=== PATIENT | female | born 1995 | race Caucasian/White ===

== ENCOUNTER 2017-02-14 22:37 | Inpatient (IN) | payer SELFPAY ==
[~2017-02-14] VITALS: Ht 162.6 cm; Wt 55.6 kg
[2017-02-14 22:38] VITALS: BP 127/80; PULSE 113; RESP 20; TEMP 97.8; O2SAT 100
--- NOTE | 2017-02-14 22:44 | PD ---
Physical Exam Date Seen by Provider: Feb 14, 2017 Time Seen by Provider: 22:42 Data Data Last Documented VS Vital Signs Date Time Temp Pulse Resp B/P Pulse Ox O2 Delivery O2 Flow Rate FiO2 02/14/17 22:38 97.8 113 20 127/80 100 Room Air MDM Supervised Visit with [place]: No Narrative Course 21 YO F with PMH T1DM with complaint of BG ~500+. Patient states that she hasn' t had insulin for one week 2/2 financial issues. Complains that she slept all day and still feels tired. LMP 02/09 Vitals reviewed. Patient seen in triage. Awaiting bed placement. Hanh Matute Feb 14, 2017 22:44
[2017-02-14] MEDS ORDERED: SODIUM CHLOR 0.9% 1000 ML INJ 1,000 ML IV ONE ×2 (22:54→23:24)
[2017-02-14 22:55] LABS: MEAN CORPUSCULAR HGB CONC 29.8 % (32.0-36.0)
[2017-02-14] MEDS ORDERED: LANTUS2P SQ (22:59)
[2017-02-14] MEDS ORDERED: SODIUM CHLORIDE 0.9% FLUSH 10 ML FLUSH IVF PRN (23:00)
--- NOTE | 2017-02-14 23:37 | PD ---
HPI Chief Complaint: Diabetic Time Seen by Provider: 22:54 Travel History International Travel<30 days: No Contact w/Intl Traveler<30days: No Traveled to known affect area: No History of Present Illness HPI 21-year-old type I diabetic here with complaint of hyperglycemia. Patient states that she ran out of her insulin approximate 1 week ago and has not been able to refill it due to financial constraints. Her blood glucoses have been in the 2 to 500s at home. She feels dehydrated. She has polyuria, polydipsia. Denies any nausea, vomiting, fevers or chills. PFSH Past Medical History Diabetes: Yes Patient Takes Glucophage: No Diminished Hearing: No Tetanus Vaccination: > 5 Years Influenza Vaccination: No ?: Not LMP: 02/12/17 Past Surgical History Surgical History: No Previous Surgery Social History Alcohol Use: No Tobacco Use: No Substance Use: Yes (CANNABIS) Allergies-Medications (Allergen,Severity, Reaction): Coded Allergies: No Known Allergies (Unverified , 02/14/17) Reported Meds & Prescriptions Reported Meds & Active Scripts Active Reported Lantus Inj (Insulin Glargine) 1,000 Unit/10 Ml Vial 5 Units SQ HS Review of Systems Except as stated in HPI: all other systems reviewed are Neg Physical Exam Narrative GENERAL: Well-appearing female in no acute distress SKIN: Focused skin assessment warm/dry. HEAD: Normocephalic. EYES: Pupils equal and round. No scleral icterus. No injection or drainage. ENT: No nasal bleeding or discharge. Mucous membranes dry NECK: Supple CARDIOVASCULAR: Regular rate and rhythm. No murmur appreciated. RESPIRATORY: No accessory muscle use. Clear to auscultation. Breath sounds equal bilaterally. GASTROINTESTINAL: Abdomen soft, non-tender, nondistended. MUSCULOSKELETAL: No obvious deformities. No edema. NEUROLOGICAL: Awake and alert. . Normal speech. PSYCHIATRIC: Appropriate mood and affect; insight and judgment normal. Data Data Last Documented VS Vital Signs Date Time Temp Pulse Resp B/P Pulse Ox O2 Delivery O2 Flow Rate FiO2 02/14/17 22:38 97.8 113 20 127/80 100 Room Air Orders Complete Blood Count With Diff (02/14/17 22:54) Comprehensive Metabolic Panel (02/14/17 22:54) Beta Hydroxybutyrate (Acetone) (02/14/17 22:54) Urinalysis - C+S If Indicated (02/14/17 22:54) Ecg Monitoring (02/14/17 22:54) Iv Access Insert/Monitor (02/14/17 22:54) Oximetry (02/14/17 22:54) NPO (02/14/17 22:54) Sodium Chlor 0.9% 1000 Ml Inj (Ns 1000 M (02/14/17 22:54) Sodium Chlor 0.9% 1000 Ml Inj (Ns 1000 M (02/14/17 23:24) Sodium Chloride 0.9% Flush (Ns Flush) (02/14/17 23:00) House Sitter / Telemetry SOPHIA.Q8H (02/15/17 01:05) ^ Insert Iv (02/15/17 01:05) Diet Npo (02/15/17 Breakfast) Sodium Chlor 0.9% 1000 Ml Inj (Ns 1000 M (02/15/17 01:05) Dext 5%-Nacl 0.9% 1000 Ml Inj (D5w-Ns 10 (02/15/17 01:05) Insulin Human Regular Inj (Novolin R Inj (02/15/17 01:15) Insulin Regular (Iv Infusion) (Novolin R (02/15/17 01:15) Potassium Chlor 40 Meq Premix (Kcl 40 Me (02/15/17 01:15) Potassium Chlor 40 Meq Premix (Kcl 40 Me (02/15/17 01:15) Potassium Chlor 20 Meq Premix (Kcl 20 Me (02/15/17 01:15) Potassium Chlor 20 Meq Premix (Kcl 20 Me (02/15/17 01:15) Potassium Chlor 20 Meq Premix (Kcl 20 Me (02/15/17 01:15) Potassium Chlor 20 Meq Premix (Kcl 20 Me (02/15/17 01:15) Potassium Chlor 20 Meq Premix (Kcl 20 Me (02/15/17 01:15) Potassium Chlor 20 Meq Premix (Kcl 20 Me (02/15/17 01:15) Sodium Bicarbonate 8.4% Inj (Sodium Bica (02/15/17 01:15) Sodium Bicarbonate 8.4% Inj (Sodium Bica (02/15/17 01:15) Sodium Phosphate Inj (Sodium Phosphate I (02/15/17 01:15) Hemoglobin (Hgb) A1c (02/15/17 01:05) Basic Metabolic Panel (Bmp) (02/15/17 06:05) Basic Metabolic Panel (Bmp) (02/15/17 12:05) Basic Metabolic Panel (Bmp) (02/15/17 18:05) Basic Metabolic Panel (Bmp) (02/16/17 00:05) Magnesium (Mg) (02/15/17 06:05) Magnesium (Mg) (02/15/17 12:05) Magnesium (Mg) (02/15/17 18:05) Magnesium (Mg) (02/16/17 00:05) Phosphorus (Po4) (02/15/17 06:05) Phosphorus (Po4) (02/15/17 12:05) Labs Laboratory Tests Test 02/15/17 00:03 White Blood Count 8.9 TH/MM3 Red Blood Count 5.76 MIL/MM3 Hemoglobin 12.2 GM/DL Hematocrit 41.0 % Mean Corpuscular Volume 71.2 FL Mean Corpuscular Hemoglobin 21.2 PG Mean Corpuscular Hemoglobin 29.8 % Concent Red Cell Distribution Width 20.5 % Platelet Count 318 TH/MM3 Mean Platelet Volume 9.6 FL Neutrophils (%) (Auto) 77.7 % Lymphocytes (%) (Auto) 14.3 % Monocytes (%) (Auto) 7.2 % Eosinophils (%) (Auto) 0.3 % Basophils (%) (Auto) 0.5 % Neutrophils # (Auto) 6.9 TH/MM3 Lymphocytes # (Auto) 1.3 TH/MM3 Monocytes # (Auto) 0.6 TH/MM3 Eosinophils # (Auto) 0.0 TH/MM3 Basophils # (Auto) 0.0 TH/MM3 CBC Comment AUTO DIFF Sodium Level 132 MEQ/L Potassium Level 3.6 MEQ/L Chloride Level 106 MEQ/L Carbon Dioxide Level 5.3 MEQ/L Anion Gap 21 MEQ/L Blood Urea Nitrogen 8 MG/DL Creatinine 0.91 MG/DL Estimat Glomerular Filtration 77 ML/MIN Rate Random Glucose 349 MG/DL Calcium Level 8.6 MG/DL Total Bilirubin 0.4 MG/DL Aspartate Amino Transf 16 U/L (AST/SGOT) Alanine Aminotransferase 26 U/L (ALT/SGPT) Alkaline Phosphatase 131 U/L Total Protein 9.5 GM/DL Albumin 4.4 GM/DL B-Hydroxybutyrate 8.79 MMOL/L MDM Medical Decision Making Medical Screen Exam Complete: Yes Emergency Medical Condition: Yes Medical Record Reviewed: Yes Differential Diagnosis 21-year-old type I diabetic off insulin times one week with polyuria, polydipsia and hyperglycemia at home. Mucous membranes are quite dry on exam. Differential includes dehydration, electrolyte abnormality, hyperglycemia, DKA, HHS Narrative Course Patient placed on monitor, IV established and blood obtained. Given 2 L normal saline bolus. CBC, CMP, beta hydroxybutyrate and urinalysis showed bicarbonate 5.3 with anion gap 21, glucose 349. Beta hydroxybutyrate 8.79. Consistent with DKA. Patient was given insulin bolus, draped and placed on DKA protocol will be admitted to the ICU for further management. Critical Care Narrative Aggregate critical care time was 35 minutes. Time to perform other separately billable procedures was not included in the critical care time. My time did not include minutes spent treating any other patients simultaneously or on activities that did not directly contribute to the patient's treatment. The services I provided to this patient were to treat and/or prevent clinically significant deterioration that could result in: Cardiopulmonary decompensation, metabolic decompensation, , disability I provided critical care services requiring my management, as noted below: Chart data review, documentation time, medication orders and management, vital sign assessments/reviewing monitor data, ordering and reviewing lab tests, ordering and interpreting/reviewing x-rays and diagnostic studies, care of the patient and discussion of the patient with the admitting physicians. Diagnosis Primary Impression: DKA (diabetic ketoacidoses) Qualified Code: E10.10 - Diabetic ketoacidosis without coma associated with type 1 diabetes mellitus Additional Impressions: High anion gap metabolic acidosis Noncompliance with medication regimen Admitting Information Admitting Physician Requests: Admit Salome Perry MD Feb 14, 2017 23:37
[2017-02-15] VITALS (15 sets, daily range): BP systolic 94–138; BP diastolic 55–84; PULSE 71–97; RESP 13–37; TEMP 98.4–99.3; O2SAT 97–100
[2017-02-15 00:27] LABS: AUTOMATED NEUTROPHIL # 6.9 TH/MM3 (1.8-7.7); BASOPHIL % 0.5 % (0.0-2.0); EOSINOPHIL % 0.3 % (0.0-4.0); LYMPH % 14.3 % (9.0-44.0); LYMPHOCYTE # 1.3 TH/MM3 (1.0-4.8); MEAN CELL VOLUME 71.2 FL (80.0-100.0); MEAN CORPUSCULAR HEMOGLOBIN 21.2 PG (27.0-34.0); MONO % 7.2 % (0.0-8.0); NEUT % 77.7 % (16.0-70.0); PLATELET COUNT 318 TH/MM3 (150-450); RED BLOOD COUNT 5.76 MIL/MM3 (4.00-5.30); RED CELL DISTRIBUTION WIDTH 20.5 % (11.6-17.2); WHITE BLOOD COUNT 8.9 TH/MM3 (4.0-11.0)
[2017-02-15 00:34] LABS: ALT (GPT) 26 U/L (10-53)
[2017-02-15 00:35] LABS: HEMO FLAGS AUTO DIFF
[2017-02-15 00:43] LABS: ANION GAP 21 MEQ/L (5-15); AST (GOT) 16 U/L (15-37); BICARBONATE 5.3 MEQ/L (21.0-32.0); BLOOD UREA NITROGEN 8 MG/DL (7-18); CHLORIDE 106 MEQ/L (98-107); GLOMERULAR FILTRATION RATE 77 ML/MIN (>89); POTASSIUM 3.6 MEQ/L (3.5-5.1); SODIUM (NA) 132 MEQ/L (136-145)
[2017-02-15 00:44] LABS: ALKALINE PHOSPHATASE 131 U/L (45-117); BETA-HYDROXYBUTYRATE 8.79 MMOL/L (0.00-0.39); TOTAL BILIRUBIN ADULT 0.4 MG/DL (0.2-1.0)
[2017-02-15] MEDS ORDERED: SODIUM CHLOR 0.9% 1000 ML INJ 1,000 ML IV SCH ×2 (01:05→02:29)
[2017-02-15 01:14] LABS: ACANTHOCYTES OCC (NORMAL); TEARDROP RBCS 1+ (NORMAL)
[2017-02-15 01:15] LABS: SCAN/DIFF AUTO DIFF CONFIRMED
[2017-02-15] MEDS ORDERED: INSULIN HUMAN REGULAR 1,000 UNITS/10 ML VIAL IV PUSH ONE (01:15)
[2017-02-15] MEDS ORDERED: INSULIN REGULAR (IV INFUSION) 100 UNITS in SODIUM CHLORIDE 0.9% INJ 99 ML IV SCH ×2 (01:15→02:30)
[2017-02-15] MEDS ORDERED: POTASSIUM CHLOR 20 MEQ PREMIX 100 ML IV PRN ×11 (01:15→02:30)
[2017-02-15] MEDS ORDERED: POTASSIUM CHLOR 40 MEQ PREMIX 100 ML IV PRN ×4 (01:15→02:30)
[2017-02-15] MEDS ORDERED: SODIUM PHOSPHATE INJ 15 MMOL in SODIUM CHLORIDE 0.9% INJ 100 ML IV PRN ×2 (01:15→02:30)
[2017-02-15] MEDS ORDERED: SODIUM BICARBONATE 8.4% SOLN 50 MEQ/50 ML VIAL IV PRN ×4 (01:15→02:30)
[2017-02-15] MEDS: POTASSIUM CHLOR 20 MEQ PREMIX 100 ML IV PRN ×2 (01:32→05:36)
[2017-02-15] MEDS ORDERED: DEXT 5%-NACL 0.9% 1000 ML INJ 1,000 ML IV SCH (02:29)
[2017-02-15] MEDS ORDERED: CHLORHEXIDINE GLUCONATE 2 % 1 PACK (2 CLOTHS) TOP PRN (02:30)
[2017-02-15] MEDS ORDERED: MISCELLANEOUS NURSING INFORMATION XX SCH (02:30)
--- NOTE | 2017-02-15 02:37 | HHI.HP ---
HPI Service Critical Care Medicine Primary Care Physician No Primary Care Physician Admission Diagnosis DKA Diagnosis: Travel History International Travel<30 Days: No Contact w/Intl Traveler <30 Da: No Traveled to Known Affected Are: No History of Present Illness 21-year-old type I diabetic here with complaint of hyperglycemia. Patient states that she ran out of her insulin approximate 1 week ago and has not been able to refill it due to financial constraints. Her blood glucoses have been in the 200s to 500s at home. She feels dehydrated. She has polyuria, polydipsia. Denies any nausea, vomiting, fevers or chills. Review of Systems Constitutional: COMPLAINS OF: Fatigue, DENIES: Diaphoretic episodes, Fever, Weight gain, Weight loss, Chills, Dizziness, Change in appetite, Night Sweats Endocrine: COMPLAINS OF: Polydipsia, Polyuria, DENIES: Abnorml menstrual pattern, Heat/cold intolerance, Polyphagia Eyes: DENIES: Blurred vision, Diplopia, Eye inflammation, Eye pain, Vision loss , Photosensitivity, Double Vision Ears, nose, mouth, throat: DENIES: Tinnitus, Hearing loss, Vertigo, Nasal discharge, Oral lesions, Throat pain, Hoarseness, Ear Pain, Running Nose, Epistaxis, Sinus Pain, Toothache, Odynophagia Respiratory: DENIES: Apneas, Cough, Snoring, Wheezing, Hemoptysis, Sputum production, Shortness of breath Cardiovascular: DENIES: Chest pain, Palpitations, Syncope, Dyspnea on Exertion , PND, Lower Extremity Edema, Orthopnea, Claudication Gastrointestinal: DENIES: Abdominal pain, Black stools, Bloody stools, Constipation, Diarrhea, Nausea, Vomiting, Difficulty Swallowing, Anorexia Genitourinary: DENIES: Abnormal vaginal bleeding, Dysmenorrhea, Dyspareunia, Sexual dysfunction, Urinary frequency, Urinary incontinence, Urgency, Hematuria , Dysuria, Nocturia, Vaginal discharge Musculoskeletal: DENIES: Joint pain, Muscle aches, Stiffness, Joint Swelling, Back pain, Neck pain Integumentary: DENIES: Abnormal pigmentation, Pruritus, Rash, Nail changes, Breast masses, Breast skin changes, Nipple discharge Hematologic/lymphatic: DENIES: Bruising, Lymphadenopathy Immunologic/allergic: DENIES: Eczema, Urticaria Neurologic: DENIES: Abnormal gait, Headache, Localized weakness, Paresthesias, Seizures, Speech Problems, Tremor, Poor Balance Psychiatric: DENIES: Anxiety, Confusion, Mood changes, Depression, Hallucinations, Agitation, Suicidal Ideation, Homicidal Ideation, Delusions Past Family Social History Allergies: Coded Allergies: No Known Allergies (Unverified , 02/14/17) Past Medical History Insulin-dependent diabetes mellitus Past Surgical History None Reported Medications Reported Meds & Active Scripts Active Reported Lantus Inj (Insulin Glargine) 1,000 Unit/10 Ml Vial 5 Units SQ HS Active Ordered Medications Current Medications Medications (Trade) Dose Ordered Sig/Guera Route PRN Reason Start Time Stop Time Status Last Admin Dose Admin Sodium Chloride 2 ml 2 ml UNSCH PRN IVF FLUSH AFTER USING IV ACCESS 02/14/17 23:00 Sodium Chloride 1,000 ml @ 250 mls/hr Q4H IV 02/15/17 01:05 02/15/17 01:32 Dextrose/Sodium Chloride 1,000 ml @ 200 mls/hr Q5H IV 02/15/17 01:05 Insulin Human Regular 100 units/ Sodium Chloride 100 ml @ 0 mls/hr TITRATE IV 02/15/17 01:15 02/15/17 01:39 Potassium Chloride 100 ml @ 100 mls/hr Q1H PRN IV SEE LABEL COMMENTS 02/15/17 01:15 Potassium Chloride 100 ml @ 50 mls/hr Q2H PRN IV SEE LABEL COMMENTS 02/15/17 01:15 Potassium Chloride 100 ml @ 100 mls/hr Q1H PRN IV SEE LABEL COMMENTS 02/15/17 01:15 Potassium Chloride 100 ml @ 100 mls/hr Q1H PRN IV SEE LABEL COMMENTS 02/15/17 01:15 Potassium Chloride 100 ml @ 50 mls/hr Q2H PRN IV SEE LABEL COMMENTS 02/15/17 01:15 Potassium Chloride 100 ml @ 50 mls/hr Q2H PRN IV SEE LABEL COMMENTS 02/15/17 01:15 Potassium Chloride 100 ml @ 50 mls/hr Q2H PRN IV SEE LABEL COMMENTS 02/15/17 01:15 02/15/17 01:32 Potassium Chloride (KCl 20 Meq Premix Inj) 100 ml @ 50 mls/hr Q2H PRN IV SEE LABEL COMMENTS 02/15/17 01:15 Sodium Bicarbonate (Sodium Bicarbonate 8.4% Inj) 100 meq UNSCH PRN IV SEE LABEL COMMENTS 02/15/17 01:15 Sodium Bicarbonate 50 meq 50 meq UNSCH PRN IV SEE LABEL COMMENTS 02/15/17 01:15 Sodium Phosphate/ Sodium Chloride (Sodium Phosphate Inj/NS Inj) 105 ml @ 25 mls/hr UNSCH PRN IV SEE LABEL COMMENTS 02/15/17 01:15 Family History Noncontributory Social History Negative 3 Physical Exam Vital Signs Vital Signs Date Time Temp Pulse Resp B/P Pulse Ox O2 Delivery O2 Flow Rate FiO2 02/14/17 22:38 97.8 113 20 127/80 100 Room Air Physical Exam GENERAL: Well-nourished, well-developed patient. SKIN: Warm and dry. HEAD: Normocephalic. EYES: No scleral icterus. No injection or drainage. NECK: Supple, trachea midline. No JVD or lymphadenopathy. CARDIOVASCULAR: Regular rate and rhythm without murmurs, gallops, or rubs. RESPIRATORY: Breath sounds equal bilaterally. No accessory muscle use. GASTROINTESTINAL: Abdomen soft, non-tender, nondistended. MUSCULOSKELETAL: No cyanosis, or edema. BACK: Nontender without obvious deformity. No CVA tenderness. EXTREMITIES: No clubbing cyanosis or edema Laboratory Laboratory Tests Test 02/15/17 00:03 White Blood Count 8.9 Red Blood Count 5.76 Hemoglobin 12.2 Hematocrit 41.0 Mean Corpuscular Volume 71.2 Mean Corpuscular Hemoglobin 21.2 Mean Corpuscular Hemoglobin 29.8 Concent Red Cell Distribution Width 20.5 Platelet Count 318 Mean Platelet Volume 9.6 Neutrophils (%) (Auto) 77.7 Lymphocytes (%) (Auto) 14.3 Monocytes (%) (Auto) 7.2 Eosinophils (%) (Auto) 0.3 Basophils (%) (Auto) 0.5 Neutrophils # (Auto) 6.9 Lymphocytes # (Auto) 1.3 Monocytes # (Auto) 0.6 Eosinophils # (Auto) 0.0 Basophils # (Auto) 0.0 CBC Comment AUTO DIFF Differential Comment AUTO DIFF CONFIRMED Platelet Estimate Platelet Morphology Comment Tear Drop Cells 1+ Acanthocytes OCC Sodium Level 132 Potassium Level 3.6 Chloride Level 106 Carbon Dioxide Level 5.3 Anion Gap 21 Blood Urea Nitrogen 8 Creatinine 0.91 Estimat Glomerular Filtration 77 Rate Random Glucose 349 Calcium Level 8.6 Total Bilirubin 0.4 Aspartate Amino Transf 16 (AST/SGOT) Alanine Aminotransferase 26 (ALT/SGPT) Alkaline Phosphatase 131 Total Protein 9.5 Albumin 4.4 B-Hydroxybutyrate 8.79 Result Diagram: 02/15/17 0003 02/15/17 0003 Steve Li MD Feb 15, 2017 02:37
[2017-02-15] MEDS: DEXT 5%-NACL 0.9% 1000 ML INJ 1,000 ML IV SCH ×3 (02:42→10:38)
[2017-02-15] MEDS: CHLORHEXIDINE GLUCONATE 2 % 1 PACK (2 CLOTHS) TOP SCH ×2 (04:00→05:37)
[2017-02-15 09:02] LABS: AUTOMATED NEUTROPHIL # 5.3 TH/MM3 (1.8-7.7); BASOPHIL % 0.4 % (0.0-2.0); EOSINOPHIL % 0.4 % (0.0-4.0); LYMPHOCYTE # 0.7 TH/MM3 (1.0-4.8); MEAN CORPUSCULAR HEMOGLOBIN 20.9 PG (27.0-34.0); MEAN CORPUSCULAR HGB CONC 30.7 % (32.0-36.0); MONO % 13.1 % (0.0-8.0); NEUT % 76.1 % (16.0-70.0); PLATELET COUNT 261 TH/MM3 (150-450); RED BLOOD COUNT 4.41 MIL/MM3 (4.00-5.30); RED CELL DISTRIBUTION WIDTH 20.1 % (11.6-17.2)
[2017-02-15 09:07] LABS: HEMO FLAGS AUTO DIFF
[2017-02-15 09:28] LABS: ALKALINE PHOSPHATASE 86 U/L (45-117); ALT (GPT) 18 U/L (10-53); ANION GAP 12 MEQ/L (5-15); AST (GOT) 8 U/L (15-37); BLOOD UREA NITROGEN 5 MG/DL (7-18); CHLORIDE 116 MEQ/L (98-107); GLOMERULAR FILTRATION RATE 118 ML/MIN (>89); MAGNESIUM 1.5 MG/DL (1.5-2.5); SODIUM (NA) 140 MEQ/L (136-145); TOTAL BILIRUBIN ADULT 0.4 MG/DL (0.2-1.0)
[2017-02-15 09:33] LABS: BANDS 7 % (0-6); METAMYELOCYTES 1 % (0-1); MYELOCYTES 1 % (0-0); NEUTROPHIL # MANUAL DIFF 5.5 TH/MM3 (1.8-7.7); POLYS (SEG NEUTROPHILS) 70 % (16-70); WBC DIFF SAMPLE 100
[2017-02-15 09:34] LABS: ACANTHOCYTES OCC (NORMAL); OVALOCYTES 1+ (NORMAL)
[2017-02-15 09:35] LABS: PLATELET ESTIMATE SMEAR NORMAL (NORMAL); PLATELET MORPHOLOGY ENLARGED (NORMAL); SCAN/DIFF FINAL DIFF MANUAL
[2017-02-15 09:41] LABS: POTASSIUM 2.6 MEQ/L (3.5-5.1)
[2017-02-15] MEDS ORDERED: DC Insulin drip 2 hrs post basal insulin dose ONE (10:45)
[2017-02-15] MEDS ORDERED: DC previous DKA orders (HMC 1917) ONE (10:45)
[2017-02-15] MEDS ORDERED: GLUCAGON 1 MG/ML VIAL OTHER PRN (10:45)
[2017-02-15] MEDS ORDERED: DEXTROSE 50% IN WATER 50 ML VIAL(D50) IV PRN (10:45)
[2017-02-15] MEDS: INSULIN DETEMIR 100 UNITS/ML VIAL SQ SCH (12:02)
[2017-02-15] MEDS: SODIUM CHLOR 0.9% 1000 ML INJ 1,000 ML IV SCH ×2 (12:30→21:11)
[2017-02-15] MEDS ORDERED: POTASSIUM CHLORIDE 25 MEQ EFFERVESCENT TAB PO ONE (12:30)
[2017-02-15 12:45] LABS: ANION GAP 10 MEQ/L (5-15); BETA-HYDROXYBUTYRATE 0.28 MMOL/L (0.00-0.39); BICARBONATE 15.8 MEQ/L (21.0-32.0); BLOOD UREA NITROGEN 4 MG/DL (7-18); CHLORIDE 115 MEQ/L (98-107); GLOMERULAR FILTRATION RATE 133 ML/MIN (>89); MAGNESIUM 1.5 MG/DL (1.5-2.5); SODIUM (NA) 141 MEQ/L (136-145)
[2017-02-15 12:50] LABS: POTASSIUM 2.4 MEQ/L (3.5-5.1)
[2017-02-15] MEDS ORDERED: POTASSIUM CHLOR 20 MEQ PREMIX 100 ML ONE (12:53)
[2017-02-15 14:47] LABS: ANION GAP 8 MEQ/L (5-15); BLOOD UREA NITROGEN 5 MG/DL (7-18); CHLORIDE 113 MEQ/L (98-107); GLOMERULAR FILTRATION RATE 151 ML/MIN (>89); MAGNESIUM 1.5 MG/DL (1.5-2.5); POTASSIUM 3.6 MEQ/L (3.5-5.1); SODIUM (NA) 137 MEQ/L (136-145)
[2017-02-15 14:52] LABS: BETA-HYDROXYBUTYRATE 0.63 MMOL/L (0.00-0.39)
[2017-02-15 18:44] LABS: BETA HCG QUANT LESS THAN 1 MIU/ML (0-5)
[2017-02-15] MEDS: LOW DOSE INSULIN NOVOLIN REGULAR SUPPLEMENTAL SCALE SQ SCH (21:00)
[2017-02-16] VITALS (8 sets, daily range): BP systolic 100–106; BP diastolic 61–72; PULSE 72–92; RESP 18–20; TEMP 98.3–98.8; O2SAT 100
[2017-02-16] MEDS: LOW DOSE INSULIN NOVOLIN REGULAR SUPPLEMENTAL SCALE SQ SCH ×3 (02:05→11:00)
[2017-02-16] MEDS: SODIUM CHLOR 0.9% 1000 ML INJ 1,000 ML IV SCH ×2 (04:30→09:05)
[2017-02-16] MEDS: INSULIN DETEMIR 100 UNITS/ML VIAL SQ SCH (09:05)
--- NOTE | 2017-02-16 09:37 | HHI.CCPN ---
Subjective Remarks/Hospital Course 21-year-old type I diabetic here with complaint of hyperglycemia. Patient states that she ran out of her insulin approximate 1 week ago and has not been able to refill it due to financial constraints. Her blood glucoses have been in the 200s to 500s at home. She feels dehydrated. She has polyuria, polydipsia. Denies any nausea, vomiting, fevers or chills. SUBJ 02/16: Blood sugar well controlled 120-130 on Levemir 7U and SSI. Willing to take Lantus and NovoLog at home. Plan to DC home today Objective Vital Signs Date Time Temp Pulse Resp B/P Pulse Ox O2 Delivery O2 Flow Rate FiO2 02/16/17 06:00 77 02/16/17 04:00 98.5 20 102/64 100 02/15/17 02:32 Room Air Intake and Output 02/15/17 02/15/17 02/15/17 07:59 15:59 23:59 Intake Total 701 ml 2359 ml 1400 ml Output Total 800 ml 2000 ml 900 ml Balance -99 ml 359 ml 500 ml Result Diagram: 02/15/17 0811 02/15/17 1414 Objective Remarks GENERAL: Well-nourished, well-developed patient. SKIN: Warm and dry. HEAD: Normocephalic. EYES: No scleral icterus. No injection or drainage. NECK: Supple, trachea midline. No JVD or lymphadenopathy. CARDIOVASCULAR: Regular rate and rhythm without murmurs, gallops, or rubs. RESPIRATORY: Breath sounds equal bilaterally. No accessory muscle use. GASTROINTESTINAL: Abdomen soft, non-tender, nondistended. MUSCULOSKELETAL: No cyanosis, or edema. BACK: Nontender without obvious deformity. No CVA tenderness. EXTREMITIES: No clubbing cyanosis or edema A/P Problem List: (1) DKA (diabetic ketoacidoses) ICD Code: E13.10 Status: Acute (2) High anion gap metabolic acidosis ICD Code: E87.2 Status: Acute (3) Noncompliance with medication regimen ICD Code: Z91.14 Status: Acute (4) Hypokalemia ICD Code: E87.6 Status: Acute (5) Microcytic anemia ICD Code: D50.9 Status: Acute Assessment and Plan NEURO: No acute neuro issues. RESP: Good oxygen saturation without supplemental oxygen CV: Normal saline IV fluids-DC today GI: ADA diet : Monitor renal function closely. ID: Monitor for infection HEME: Monitor CBC, CMP, coags ENDO: DKA has resolved. Blood sugar controlled on Levemir 7 units with NovoLog sliding scale PROPH: Bilateral lower extremity SCDs. LINES: Utilize peripheral IVs Level 2. Discharge home today with insulin prescriptions Problem Qualifiers (1) DKA (diabetic ketoacidoses): Qualified Code: E10.10 - Diabetic ketoacidosis without coma associated with type 1 diabetes mellitus Jake Huerta MD Feb 16, 2017 09:37 Jake Huerta MD Feb 16, 2017 09:37
[2017-02-16] MEDS ORDERED: INFLUENZA VIRUS VACCINE (QUADRIVALENT) 0.5 ML SYR IM ONE (10:00)
[2017-02-16] MEDS ORDERED: PNEUMOCOCCAL POLYVALENT INJ 25 MCG/0.5 ML SYR IM ONE (10:00)
--- NOTE | 2017-02-16 10:01 | HHI.DS ---
Discharge Summary Admission Date Feb 15, 2017 at 01:13 Discharge Date: Feb 16, 2017 Admitting Diagnosis DKA (1) DKA (diabetic ketoacidoses) ICD Code: E13.10 Diagnosis: Principal (2) High anion gap metabolic acidosis ICD Code: E87.2 Diagnosis: Principal (3) Hypokalemia ICD Code: E87.6 Diagnosis: Principal (4) Microcytic anemia ICD Code: D50.9 Diagnosis: Secondary (5) Noncompliance with medication regimen ICD Code: Z91.14 Diagnosis: Secondary Brief History 21-year-old type I diabetic here with complaint of hyperglycemia. Patient states that she ran out of her insulin approximate 1 week ago and has not been able to refill it due to financial constraints. Her blood glucoses have been in the 200s to 500s at home. She feels dehydrated. She has polyuria, polydipsia. Denies any nausea, vomiting, fevers or chills. CBC/BMP: 02/15/17 0811 02/15/17 1414 Significant Findings Laboratory Tests Test 02/15/17 02/15/17 02/15/17 02/15/17 00:03 08:11 11:46 14:14 Red Blood Count 5.76 MIL/MM3 (4.00-5.30) Mean Corpuscular Volume 71.2 FL 68.0 FL (80.0-100.0) (80.0-100.0) Mean Corpuscular Hemoglobin 21.2 PG 20.9 PG (27.0-34.0) (27.0-34.0) Mean Corpuscular Hemoglobin 29.8 % 30.7 % Concent (32.0-36.0) (32.0-36.0) Red Cell Distribution Width 20.5 % 20.1 % (11.6-17.2) (11.6-17.2) Neutrophils (%) (Auto) 77.7 % 76.1 % (16.0-70.0) (16.0-70.0) Tear Drop Cells 1+ (NORMAL) Acanthocytes OCC (NORMAL) OCC (NORMAL) Sodium Level 132 MEQ/L (136-145) Carbon Dioxide Level 5.3 MEQ/L 12.0 MEQ/L 15.8 MEQ/L 16.0 MEQ/L (21.0-32.0) (21.0-32.0) (21.0-32.0) (21.0-32.0) Anion Gap 21 MEQ/L (5-15) Estimat Glomerular Filtration 77 ML/MIN (>89) Rate Random Glucose 349 MG/DL 261 MG/DL 204 MG/DL 262 MG/DL (74-106) (74-106) (74-106) (74-106) Alkaline Phosphatase 131 U/L (45-117) Total Protein 9.5 GM/DL (6.4-8.2) B-Hydroxybutyrate 8.79 MMOL/L 0.63 MMOL/L (0.00-0.39) (0.00-0.39) Hemoglobin 9.2 GM/DL (11.6-15.3) Hematocrit 30.0 % (35.0-46.0) Monocytes (%) (Auto) 13.1 % (0.0-8.0) Lymphocytes # (Auto) 0.7 TH/MM3 (1.0-4.8) Band Neutrophils % 7 % (0-6) Monocytes % 11 % (0-8) Myelocytes 1 % (0-0) Platelet Morphology Comment ENLARGED (NORMAL) Ovalocytes 1+ (NORMAL) Potassium Level 2.6 MEQ/L 2.4 MEQ/L (3.5-5.1) (3.5-5.1) Chloride Level 116 MEQ/L 115 MEQ/L 113 MEQ/L (98-107) (98-107) (98-107) Blood Urea Nitrogen 5 MG/DL (7-18) 4 MG/DL (7-18) 5 MG/DL (7-18) Calcium Level 7.5 MG/DL 7.6 MG/DL 7.6 MG/DL (8.5-10.1) (8.5-10.1) (8.5-10.1) Phosphorus Level 0.3 MG/DL 0.2 MG/DL 0.4 MG/DL (2.5-4.9) (2.5-4.9) (2.5-4.9) Aspartate Amino Transf 8 U/L (15-37) (AST/SGOT) Albumin 2.9 GM/DL (3.4-5.0) PE at Discharge GENERAL: Well-nourished, well-developed patient. SKIN: Warm and dry. HEAD: Normocephalic. EYES: No scleral icterus. No injection or drainage. NECK: Supple, trachea midline. No JVD or lymphadenopathy. CARDIOVASCULAR: Regular rate and rhythm without murmurs, gallops, or rubs. RESPIRATORY: Breath sounds equal bilaterally. No accessory muscle use. GASTROINTESTINAL: Abdomen soft, non-tender, nondistended. MUSCULOSKELETAL: No cyanosis, or edema. BACK: Nontender without obvious deformity. No CVA tenderness. EXTREMITIES: No clubbing cyanosis or edema Transfer Summary See Hospital course Hospital Course 21-year-old type I diabetic admitted to ICU with DKA. Patient states that she ran out of her insulin approximate 1 week ago and has not been able to refill it due to financial constraints. Her blood glucoses have been in the 200s to 500s at home. She feels dehydrated. She has polyuria, polydipsia. Denies any nausea, vomiting, fevers or chills. SUBJ 02/16: Blood sugar well controlled 120-130 on Levemir 7U and SSI. Willing to take Lantus and NovoLog at home. DKA is resolved and patient tolerating by mouth diet. I will discharge patient home today Pt Condition on Discharge: Stable Discharge Disposition: Discharge Home Discharge Instructions DIET: Follow Instructions for: Diabetic Diet Activities you can perform: Regular-No Restrictions Jake Huerta MD Feb 16, 2017 10:00
[2017-02-16 16:46] LABS: HEMOGLOBIN A1a 1.6 %; HEMOGLOBIN Ao 72.1 %; HEMOGLOBIN F 3.1 %; HEMOGLOBIN LA1C 2.6 %; HEMOGLOBIN P3 4.5 %
== END 2017-02-16 11:15 | disposition home or self-care (01) | DRG 639 ==
LOC: NEPE 22:37 → NEDA 02-15 01:13 → HIME 02-15 02:50
PROVIDERS: ADMIT Internal Medicine Critical Care Medicine; ATTEND Internal Medicine Critical Care Medicine
DX: E10.10 Type 1 diabetes mellitus with ketoacidosis without coma (principal); E86.0 Dehydration; D50.9 Iron deficiency anemia, unspecified; E87.6 Hypokalemia; Z79.4 Long term (current) use of insulin; Z91.14 Patient's other noncompliance with medication regimen
CPT/HCPCS: 80048; 80053; 82010; 82948; 83036; 83735; 84100; 84702; 85007; 85025; 85027; 87641; J1815; J1817; J3480; J7030; J7042